=== PATIENT | female | born 2000 | race Two or more races ===

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

== ENCOUNTER 2023-03-06 15:50 | Inpatient (IN) | payer BC, OTHER ==
[~2023-03-06] VITALS: Ht 167.6 cm; Wt 77.1 kg
[~2023-03-06 15:50] MED LIST: Birth Control Pill PO
[2023-03-06] MEDS ORDERED: NICOTINE 21MG/24HR 1 EA TRANSDERMAL TD ONE (18:25)
[2023-03-06] MEDS ORDERED: MAALOX 30 ML SUSP *UDC PO PRN (22:05)
[2023-03-06] MEDS ORDERED: IBUPROFEN 400MG TAB PO PRN (22:05)
[2023-03-06] MEDS ORDERED: MOM 30ML SUSPENSION UDC PO PRN (22:05)
[2023-03-06] MEDS ORDERED: diphenhydrAMINE 25MG CAP PO PRN (22:05)
[2023-03-06] MEDS ORDERED: ACETAMINOPHEN TAB 650MG DOSE (2X325MG) PO PRN (22:05)
[2023-03-06] MEDS ORDERED: traZODone 50 MG TAB PO PRN (22:05)
[2023-03-06] MEDS ORDERED: VENL37.52 PO (22:50)
[2023-03-06] MEDS ORDERED: TOPI25TA10 PO (22:50)
[2023-03-06] MEDS ORDERED: SUMA50TA2 PO (22:50)
[2023-03-06] MEDS ORDERED: ENSK1TAB3 PO (22:50)
[2023-03-06] MEDS ORDERED: HOME MED LIST COMPLETE! XX SCH (22:55)
[2023-03-07 00:08] VITALS: BP 127/84; TEMP 98.8; O2SAT 98
[2023-03-07 06:44] VITALS: BP 146/61; TEMP 97.6; O2SAT 97
[2023-03-07] MEDS ORDERED: SUMAtriptan SUCCINATE 25 MG TAB PO PRN (10:25)
[2023-03-07] MEDS: TOPIRAMATE (TopAMAX) 25 MG TAB PO SCH ×2 (11:02→21:00)
[2023-03-07] MEDS: VENLAFAXINE **XR** 37.5 MG CAPSULE PO SCH (11:03)
[2023-03-07] MEDS: NICOTINE 14 MG/24 HR TRANSDERMAL TD SCH (11:03)
[2023-03-07 14:19] VITALS: BP 127/79; TEMP 98.2; O2SAT 97
[2023-03-07 18:37] VITALS: BP 140/87; TEMP 97.2
[2023-03-08 06:03] VITALS: BP 128/79; TEMP 97.5; O2SAT 100
[2023-03-08] MEDS: TOPIRAMATE (TopAMAX) 25 MG TAB PO SCH (08:59)
[2023-03-08] MEDS: VENLAFAXINE **XR** 37.5 MG CAPSULE PO SCH (08:59)
[2023-03-08] MEDS: NICOTINE 14 MG/24 HR TRANSDERMAL TD SCH (09:00)
== END 2023-03-08 11:58 | disposition home or self-care (01) | DRG 755 ==
LOC: M ED 15:50 → M ED INP 22:03 → M PSY 03-07 00:26
PROVIDERS: ADMIT Psychiatry & Neurology Psychiatry; ATTEND Psychiatry & Neurology Psychiatry
DX: F43.25 Adjustment disorder with mixed disturbance of emotions and conduct (principal); F17.290 Nicotine dependence, other tobacco product, uncomplicated; F12.10 Cannabis abuse, uncomplicated; F43.10 Post-traumatic stress disorder, unspecified; R07.89 Other chest pain; R51.9 Headache, unspecified; Z91.51 Personal history of suicidal behavior; Z79.899 Other long term (current) drug therapy; Z63.1 Problems in relationship with in-laws

== ENCOUNTER 2024-03-03 18:11 | Emergency (ER) | payer MEDICAID, OTHER ==
[~2024-03-03] VITALS: Ht 167.6 cm; Wt 87.6 kg
[~2024-03-03 18:11] MED LIST changes: +ENSK1TAB3 PO; +SUMA50TA2 PO; +TOPI25TA10 PO; +VENL37.52 PO
[2024-03-03 19:43] LABS: HEMATOCRIT 41.4 % (36.0-47.0); HEMOGLOBIN 13.6 g/dl (12.0-15.5); MEAN CORPUSCULAR HEMOGLOBIN 28.9 pg (27.0-33.0); MEAN CORPUSCULAR HGB CONC 32.9 g/dl (32.0-36.5); MEAN CORPUSCULAR VOLUME 87.9 fl (80.0-96.0); PLATELET COUNT, AUTOMATED 329 10^3/uL (150-450); RED BLOOD COUNT 4.71 10^6/uL (4.00-5.40); WHITE BLOOD COUNT 8.6 10^3/uL (4.0-10.0)
[2024-03-03 20:08] LABS: ETHYL ALCOHOL (ETHANOL) < 0.003 % (0.000-0.010)
[2024-03-03 20:10] LABS: ALBUMIN 3.3 G/DL (3.2-5.2); ALKALINE PHOSPHATASE 60 U/L (46-116); ALT/SGPT 24 U/L (7.0-40); AST/SGOT 13 U/L (<34); BILIRUBIN,DIRECT < 0.1 MG/DL (<0.4); BILIRUBIN,TOTAL 0.3 MG/DL (0.3-1.2); BLOOD UREA NITROGEN 9 MG/DL (9-23); CALCIUM LEVEL 9.6 MG/DL (8.5-10.1); CARBON DIOXIDE LEVEL 25 MMOL/L (20-31); CHLORIDE LEVEL 107 MMOL/L (98-107); CREATININE FOR GFR 0.75 MG/DL (0.55-1.30); GLOMERULAR FILTRATION RATE > 60.0 (>60); GLUCOSE, FASTING 101 MG/DL (60-100); POTASSIUM SERUM 4.2 MMOL/L (3.5-5.1); SALICYLATE LEVEL < 3.0 MG/DL (<30); SODIUM LEVEL 139 MMOL/L (136-145); TOTAL PROTEIN 6.8 G/DL (5.7-8.2)
[2024-03-03 20:11] LABS: THYROID STIMULATING HORMONE 0.765 uIU/ML (0.55-4.78)
[2024-03-03 20:16] LABS: HCG, SERUM QUALITATIVE NEGATIVE (NEGATIVE)
[2024-03-03 21:14] LABS: AMPHETAMINES LEVEL URINE NEGATIVE (NEGATIVE); BARBITURATES URINE NEGATIVE (NEGATIVE); BENZODIAZEPINES URINE NEGATIVE (NEGATIVE)
[2024-03-03 21:15] LABS: COCAINE METABOLITE URINE NEGATIVE (NEGATIVE); METHADONE URINE NEGATIVE (NEGATIVE); OPIATES URINE NEGATIVE (NEGATIVE); PHENCYCLIDINE URINE NEGATIVE (NEGATIVE)
[2024-03-03 21:20] LABS: CANNABINOIDS URINE POSITIVE (NEGATIVE)
[2024-03-03] MEDS ORDERED: HOME MED LIST COMPLETE! XX SCH (22:40)
[2024-03-03] MEDS ORDERED: LARI1TAB3 PO (22:40)
[2024-03-05] MEDS: LARIN FE PO SCH (13:03)
[2024-03-05 16:37] VITALS: BP 129/69; TEMP 97.2; O2SAT 99
== END 2024-03-05 16:48 | disposition home or self-care (01) ==
LOC: M ED 18:11
DX: R45.851 Suicidal ideations (principal); F32.A Depression, unspecified; F17.200 Nicotine dependence, unspecified, uncomplicated; F12.10 Cannabis abuse, uncomplicated; Z79.899 Other long term (current) drug therapy